=== PATIENT | female | born 1995 | race Caucasian/White ===

== ENCOUNTER 2019-05-01 19:30 | Outpatient (CLI) | payer OTHER ==
[2019-05-01 20:38] LABS: ADD UMIC NO; UR ASCORBIC ACID NEGATIVE (NEGATIVE); UR BILIRUBIN (Dip) NEGATIVE (NEGATIVE); UR BLOOD (Dip) NEGATIVE (NEGATIVE); UR CLARITY CLEAR (CLEAR); UR COLOR YELLOW (YELLOW); UR GLUCOSE (Dip) NEGATIVE (NEGATIVE); UR KETONES (Dip) NEGATIVE (NEGATIVE); UR LEUKOCYTE ESTERASE (Dip) NEGATIVE Leu/ul (NEGATIVE); UR NITRITE (Dip) NEGATIVE (NEGATIVE); UR SPECIFIC GRAVITY (Dip) 1.009 (1.003-1.030); UR TOTAL PROTEIN (Dip) NEGATIVE (NEGATIVE); UR UROBILINOGEN (Dip) NEGATIVE (NEGATIVE)
== END 2019-05-01 21:58 | disposition home or self-care (01) ==
LOC: OBT 19:30 → L-D 19:30 → OBT 21:58
DX: O62.9 Abnormality of forces of labor, unspecified (principal); O47.03 False labor before 37 completed weeks of gestation, third trimester; Z3A.36 36 weeks gestation of pregnancy
CPT/HCPCS: 81003; 87086

== ENCOUNTER 2019-05-08 02:25 | Outpatient (CLI) | payer OTHER ==
[2019-05-08] MEDS: TERBUTALINE 1 MG/ML INJ SC ×2 (03:36→04:19)
[2019-05-08 03:58] LABS: ADD UMIC NO; UR ASCORBIC ACID NEGATIVE (NEGATIVE); UR BILIRUBIN (Dip) NEGATIVE (NEGATIVE); UR BLOOD (Dip) NEGATIVE (NEGATIVE); UR CLARITY CLEAR (CLEAR); UR COLOR COLORLESS (YELLOW); UR GLUCOSE (Dip) NEGATIVE (NEGATIVE); UR KETONES (Dip) NEGATIVE (NEGATIVE); UR LEUKOCYTE ESTERASE (Dip) NEGATIVE Leu/ul (NEGATIVE); UR NITRITE (Dip) NEGATIVE (NEGATIVE); UR SPECIFIC GRAVITY (Dip) 1.003 (1.003-1.030); UR TOTAL PROTEIN (Dip) NEGATIVE (NEGATIVE); UR UROBILINOGEN (Dip) NEGATIVE (NEGATIVE)
== END 2019-05-08 06:41 | disposition home or self-care (01) ==
LOC: OBT 02:25 → L-D 02:25 → OBT 06:41
DX: O62.9 Abnormality of forces of labor, unspecified (principal); Z3A.37 37 weeks gestation of pregnancy
CPT/HCPCS: 76818; 81003; 96372

== ENCOUNTER 2019-05-24 05:45 | Inpatient (IN) | payer OTHER ==
[2019-05-24] MEDS ORDERED: IBUPROFEN 600 MG TAB PO (06:30)
[2019-05-24] MEDS ORDERED: BUTORPHANOL 2 MG INJ IV (06:30)
[2019-05-24] MEDS ORDERED: OXYTOCIN 30 UNITS/LR 500 ML IV ×2 (06:30→22:00)
[2019-05-24] MEDS ORDERED: METHYLERGONOVINE 0.2 MG INJ IM ×2 (06:30→22:00)
[2019-05-24] MEDS ORDERED: MISOPROSTOL 200 MCG TAB PR ×2 (06:30→22:00)
[2019-05-24] MEDS: LACTATED RINGER'S 1,000 ML IV ×5 (06:30→16:32)
[2019-05-24] MEDS ORDERED: CARBOPROST 250 MCG INJ IM ×2 (06:30→22:00)
[2019-05-24 06:55] LABS: ADD MAN DIFF? NO
[2019-05-24 07:00] LABS: BASOPHILS % 0.1 % (0.0-2.0); EOSINOPHILS % 0.2 % (0.0-7.0); HEMATOCRIT 38.5 % (37.0-47.0); HEMOGLOBIN 12.6 g/dl (12.0-16.0); LYMPHOCYTES # 2.5 10^3/ul (0.8-2.9); LYMPHOCYTES % 20.7 % (15.0-51.0); MEAN CORPUSCULAR HEMOGLOBIN 27.6 pg (29.0-33.0); MEAN CORPUSCULAR HGB CONC 32.7 g/dl (32.0-37.0); MEAN CORPUSCULAR VOLUME 84.4 fl (82.0-101.0); MEAN PLATELET VOLUME 9.2 fl (7.4-10.4); MONOCYTE # 0.7 10^3/ul (0.3-0.9); MONOCYTES % 5.9 % (0.0-11.0); NEUTROPHIL # 8.7 10^3/ul (1.6-7.5); NEUTROPHILS % 72.6 % (39.0-77.0); PLATELET COUNT 234 10^3/UL (140-415); RED BLOOD COUNT 4.56 10^6/ul (4.20-5.40); RED CELL DISTRIBUTION WIDTH 13.9 % (11.5-14.5)
[2019-05-24 07:00] LABS: WHITE BLOOD COUNT 11.9 10^3/ul (4.8-10.8)
[2019-05-24 07:19] LABS: INR 0.84; PROTIME 11.6 Sec (11.9-14.9); PT RATIO 0.9
[2019-05-24] MEDS ORDERED: FENTAnyl 2MCG/ML-ROPIV 0.2% 100 ML (07:32)
[2019-05-24] MEDS ORDERED: NALOXONE (0.4 MG/ML) INJ IV (08:00)
[2019-05-24] MEDS ORDERED: DIPHENHYDRAMINE 50 MG INJ IV (08:00)
[2019-05-24] MEDS ORDERED: ONDANSETRON 4 MG INJ IV (08:00)
[2019-05-24 08:44] LABS: HEPATITIS B SURFACE ANTIGEN NEGATIVE (NEGATIVE)
[2019-05-24 16:16] LABS: RAPID PLASMA REAGIN NONREACTIVE (NR)
[2019-05-24] MEDS: FENTAnyl 2MCG/ML-ROPIV 0.2% 100 ML BAG EPI (16:31)
[2019-05-24] MEDS: OXYTOCIN 30 UNITS/LR 500 ML IV ×2 (19:25→19:26)
[2019-05-24] MEDS: LIDOCAINE 1% (MPF) 30 ML INJ INJ (19:32)
[2019-05-24] MEDS: KETOROLAC 30 MG INJ IV (20:31)
[2019-05-24] MEDS: ACETAMINOPHEN 500 MG TAB PO (21:00)
[2019-05-24] MEDS ORDERED: HYDROCODONE/APAP (5/325) TAB PO (22:00)
[2019-05-24] MEDS ORDERED: ZOLPIDEM 5 MG TAB PO (22:00)
[2019-05-24] MEDS ORDERED: DIBUCAINE 1% 30 GM OINT TOP (22:00)
[2019-05-24] MEDS: MINERAL OIL LIGHT 10 ML VIAL TOP (22:18)
[2019-05-24] MEDS: WITCH HAZEL/GLYCERIN PAD PR (22:36)
[2019-05-24] MEDS: BENZOCAINE 20% 56 ML SPRAY TOP (22:36)
[2019-05-25] MEDS: LACTATED RINGER'S 1,000 ML IV* ×4 (00:04→22:29)
[2019-05-25] MEDS: IBUPROFEN 600 MG TAB PO ×4 (00:04→17:32)
[2019-05-25] MEDS: LANOLIN HPA 1 PKT TOP (00:04)
[2019-05-25] MEDS: CEPHALEXIN 500 MG CAP PO ×4 (00:04→17:32)
[2019-05-25 08:29] LABS: ADD MAN DIFF? NO
[2019-05-25 08:35] LABS: BASOPHILS % 0.2 % (0.0-2.0); EOSINOPHILS % 0.2 % (0.0-7.0); HEMATOCRIT 27.2 % (37.0-47.0); HEMOGLOBIN 9.1 g/dl (12.0-16.0); LYMPHOCYTES % 23.5 % (15.0-51.0); MEAN CORPUSCULAR HEMOGLOBIN 28.4 pg (29.0-33.0); MEAN CORPUSCULAR HGB CONC 33.5 g/dl (32.0-37.0); MEAN PLATELET VOLUME 9.4 fl (7.4-10.4); MONOCYTE # 0.7 10^3/ul (0.3-0.9); MONOCYTES % 5.5 % (0.0-11.0); NEUTROPHIL # 8.9 10^3/ul (1.6-7.5); NEUTROPHILS % 70.2 % (39.0-77.0); PLATELET COUNT 184 10^3/UL (140-415); RED CELL DISTRIBUTION WIDTH 14.1 % (11.5-14.5)
[2019-05-25 08:35] LABS: WHITE BLOOD COUNT 12.7 10^3/ul (4.8-10.8)
[2019-05-25] MEDS: MAGNESIUM HYDROXIDE 30ML CUP PO ×2 (09:43→21:56)
[2019-05-25] MEDS: SENNA/DOCUSATE NA (8.6MG/50MG) TAB PO ×2 (09:43→21:56)
[2019-05-25] MEDS: HYDROCODONE/APAP (5/325) TAB PO ×2 (10:06→17:33)
[2019-05-25 19:57] LABS: RUBELLA ANTIBODY - IGG 3.34 index
[2019-05-26] MEDS: CEPHALEXIN 500 MG CAP PO ×3 (00:16→11:29)
[2019-05-26] MEDS: IBUPROFEN 600 MG TAB PO ×3 (00:16→11:29)
[2019-05-26] MEDS: LACTATED RINGER'S 1,000 ML IV* (05:33)
[2019-05-26] MEDS: SENNA/DOCUSATE NA (8.6MG/50MG) TAB PO (08:44)
[2019-05-26] MEDS: MEASLES,MUMPS,RUBELLA VACCINE INJ SC* (09:00)
[2019-05-26] MEDS: MAGNESIUM HYDROXIDE 30ML CUP PO (09:00)
[2019-05-26] MEDS: VARICELLA VACCINE LIVE/PF 1,350 UNIT/0.5 ML ML SC* (09:00)
[2019-05-26] MEDS: DIPHTH/TET/ACEL PERTUSS (ADULT) 0.5 ML VIAL IM* (09:00)
[2019-05-26 13:51] LABS: RUBELLA ANTIBODY - IGM <20.00 AU/mL
== END 2019-05-26 15:45 | disposition home or self-care (01) | DRG 807 ==
LOC: OBT 05:45 → L-D 05:47 → OBT 06:03 → L-D 06:06 → PP1 21:25
PROVIDERS: Obstetrics & Gynecology
PROC: 10E0XZZ Delivery of Products of Conception, External Approach (ICD-10-PCS; principal; 2019-05-24)
PROC: 0KQM0ZZ Repair Perineum Muscle, Open Approach (ICD-10-PCS; 2019-05-24)
DX: O34.211 Maternal care for low transverse scar from previous cesarean delivery (principal); O70.1 Second degree perineal laceration during delivery; Z37.0 Single live birth; Z3A.39 39 weeks gestation of pregnancy
CPT/HCPCS: 62322; 85025; 85610; 85730; 86592; 86762; 86850; 86900; 86901; 87340; 90716